=== PATIENT | male | born 1935 | race Caucasian/White ===

== ENCOUNTER 2020-01-08 05:57 | Day surgery (SDC) | payer MEDICARE ==
[2020-01-08] MEDS ORDERED: Dextrose 5%-Lactated Ringers 1,000 ML IV SCH (06:30)
[2020-01-08] MEDS ORDERED: Propofol 200 MG/20 ML SDV ONE (06:56)
[2020-01-08 09:04] VITALS: BP 171/84; PULSE 64
--- NOTE | 2020-01-12 21:27 | OR ---
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 OPERATIVE PROCEDURE: Flexible sigmoidoscopy. ANESTHESIA: IV sedation. INDICATIONS FOR PROCEDURE: This is an 85-year-old status post radiation treatment for prostate carcinoma with treatments ending this past April. He presents now with some ongoing rectal bleeding. The plan is to proceed with flexible sigmoidoscopy for diagnostic purposes. Potential risks of the procedure including bleeding and perforation were discussed, and the patient wishes to proceed. DETAILS OF THE PROCEDURE: The patient was taken to the operating room and placed in the left lateral decubitus position. IV sedation was administered, after which the digital rectal exam was performed. This had some old blood on it, otherwise it was unremarkable. The flexible sigmoidoscope was then passed into the rectum and in the first 5 cm of the rectum, there was patchy reddened areas with some blood on the surface consistent with radiation proctitis. No polyps or other signs of neoplasia were seen. The scope was eventually passed to roughly 30 cm with no additional pathology being seen. At this point, the scope was withdrawn and the above findings reconfirmed. The procedure was then concluded. The plan will be to have the patient fill the Proctozone prescription that had been sent in per Dr. Seymour and start that. We will see the patient back on 01/23/2020 after he has had use of this for roughly 2 weeks. If that is not successful in making this a more manageable situation, we will obtain a GI consultation, at that point if there is some role for laser treatment of this which we would research at that point to see which GI person in the region would be able to offer that treatment. Karlo Vela MD /[id number]
== END 2020-01-08 09:00 | disposition home or self-care (01) ==
LOC: JP.SDS 05:57
PROVIDERS: ATTEND Surgery
DX: K62.7 Radiation proctitis (principal); K21.9 Gastro-esophageal reflux disease without esophagitis; I10 Essential (primary) hypertension; Z92.3 Personal history of irradiation; Z85.46 Personal history of malignant neoplasm of prostate
CPT/HCPCS: 45330; J2704; J7121